=== PATIENT | female | born 1990 | race Caucasian/White ===

== ENCOUNTER 2017-09-06 16:37 | Emergency (ER) | payer OTHER ==
[~2017-09-06] VITALS: Ht 157.5 cm; Wt 78.5 kg
[2017-09-06 17:29] VITALS: BP_SYST 115
--- NOTE | 2017-09-06 17:33 | NUR ---
Patient to ER bed H1 to gown for evaluation. Side rails up. Report given to Marisela POOL.
--- NOTE | 2017-09-06 17:40 | NUR ---
Makayla Herr HOSP[facility] NURSE at bedside examining patient
--- NOTE | 2017-09-06 17:40 | NUR ---
Pt brought by self, A&Ox4, pt c/o L side flank pain since last night, afebrile, Hx of kidney transplant, skin pink and warm, cap refill <3, VS WNL.
[2017-09-06] MEDS ORDERED: ONDANSETRON HCL 4 MG/2 ML VIAL IVP ONE (18:00)
[2017-09-06] MEDS ORDERED: NACL 0.9% 1,000 ML IV ONE (18:00)
[2017-09-06] MEDS ORDERED: MORPHINE SULFATE 10 MG/ML VIAL IVP ONE (18:00)
--- NOTE | 2017-09-06 18:00 | NUR ---
Pt moved to bed 08 on stable condition
[2017-09-06 18:09] LABS: RED BLOOD CELL COUNT(AUTO) 4.06 MIL/uL (4.2-6.2); WHITE BLOOD COUNT (AUTO) 15.5 K/uL (4.8-10.8)
[2017-09-06 18:10] LABS: BASOPHILS % (AUTO) 0.2 % (0.0-2.0); EOSINOPHILS # (AUTO) 0.2 K/uL (0.0-0.4); EOSINOPHILS % (AUTO) 1.3 % (0.0-4.0); HEMATOCRIT 38.1 % (36-48); HEMOGLOBIN 13.1 g/dL (12.0-16.0); LYMPHOCYTES # (AUTO) 0.5 K/uL (1.0-5.5); LYMPHOCYTES % (AUTO) 2.4 % (20.5-51.5); MEAN CORPUSCULAR HEMOGLOBIN 32 pg (27-31); MEAN CORPUSCULAR HGB CONC 34 % (32-36); MEAN CORPUSCULAR VOLUME 94 fL (79.0-98.0); MONOCYTES # (AUTO) 0.5 K/uL (0.0-1.0); NEUTROPHILS # (AUTO) 14.4 K/uL (1.8-7.7); NEUTROPHILS % (AUTO) 93.1 % (40.0-70.0); PLATELET COUNT (AUTO) 229 K/uL (130-430); RED CELL DISTRIBUTION WIDTH 13.3 % (9.0-15.0)
[2017-09-06 18:14] LABS: CALCIUM 9.2 mg/dL (8.4-11.0); CREATININE 1.21 mg/dL (0.55-1.30); POTASSIUM 4.3 mmol/L (3.5-5.1)
[2017-09-06] MEDS ORDERED: OXYCODONE/ACETAMINOPHEN 5-325 TABLET PO ONE ×2 (18:15→19:45)
[2017-09-06 18:20] LABS: TOTAL BILIRUBIN 0.4 mg/dL (0.0-1.0)
[2017-09-06 18:27] LABS: BILIRUBIN,URINE NEGATIVE (NEGATIVE); BLOOD, URINE 2+ (NEGATIVE); CLARITY/URINE CLEAR (CLEAR); COLOR,URINE YELLOW (YELLOW); GLUCOSE,URINE NEGATIVE (NEGATIVE); KETONES,URINE NEGATIVE (NEGATIVE); LEUKOCYTE ESTERASE ,URINE NEGATIVE (NEGATIVE); NITRITE, URINE NEGATIVE (NEGATIVE); PH,URINE 5.5 (5.0-8.0); PROTEIN URINE NEGATIVE (NEGATIVE); UROBILINOGEN,URINE 0.2 (0.2-1.0)
--- NOTE | 2017-09-06 18:30 | NUR ---
Pt on stable condition, VS WNL.
[2017-09-06 19:12] LABS: BACTERIA,URINE MODERATE /HPF (None Seen); WBC,URINE 0-3 /HPF (0-3)
[2017-09-06] MEDS ORDERED: cefTRIAXone 2 GM VIAL ONE (19:56)
--- NOTE | 2017-09-06 21:30 | NUR ---
Patient given written and verbal discharge instructions and verbalizes understanding. ER MD discussed with patient the results and treatment provided. Patient in stable condition. ID arm band removed. Rx of Cipro and Zofran given. Patient educated on pain management and to follow up with PMD. Pain Scale 0/10. Opportunity for questions provided and answered.
[2017-09-06 21:35] VITALS: BP_SYST 110
== END 2017-09-06 21:30 | disposition home or self-care (01) ==
LOC: SED 16:37
DX: N10 Acute pyelonephritis (principal); Z88.1 Allergy status to other antibiotic agents; Z94.0 Kidney transplant status; Z90.49 Acquired absence of other specified parts of digestive tract
CPT/HCPCS: 36415; 74176; 80053; 81000; 81025; 83605; 83690; 85025; 87040; 96365; 96367; 99285; J0696; J2405